=== PATIENT | female | born 1990 | race Caucasian/White ===

== ENCOUNTER → 2017-10-15 | Outpatient (CLI) | payer MEDICAID, BC | END | disposition home or self-care (01) | LOC: MERGE 21:50 → LABMAIN 21:50 | PROVIDERS: ATTEND Family Medicine | DX: Z53.9 Procedure and treatment not carried out, unspecified reason (principal) ==

== ENCOUNTER → 2018-06-23 | Outpatient (CLI) | payer MEDICAID, BC ==
[2018-06-23 21:08] LABS: Urine Alcohol Negative (Negative); Urine Barbiturate Negative (Negative); Urine Cocaine Negative (Negative); Urine Methadone Negative (Negative); Urine Opiates Negative (Negative); Urine Phencyclidine Negative (Negative)
== END ==
LOC: LABWHC1 14:17
PROVIDERS: ATTEND Family Medicine
DX: Z51.81 Encounter for therapeutic drug level monitoring (principal); Z79.899 Other long term (current) drug therapy
CPT/HCPCS: 80306

== ENCOUNTER → 2019-03-26 | Outpatient (CLI) | payer MEDICAID ==
--- NOTE | 2019-03-26 15:23 | US ---
EXAMINATION TYPE: Transabdominal DATE OF EXAM: 03/26/2019 3:07 PM COMPARISON: NONE CLINICAL HISTORY: Z36 Confirm dates. Confirm Dates, Pt has no complaints at this time EXAM PERFORMED: Transabdominal (TA) EXAM MEASUREMENTS: GESTATIONAL AGE / DATING Physician Established: (8 weeks/4 days) EDC: 11/01/2019 Dates by LMP: Unknown Dates by First Scan: No prior Dates by Current Scan for: (8 weeks/5 days) EDC: 10/31/2019 MATERNAL ANATOMY Uterus: 10.4 x 5.7 x 6.9 cm Right Ovary: 2.4 x 1.5 x 2.0 cm Left Ovary: 4.3 x 3.0 x 3.0 cm Post CDS / Adnexa: wnl Presence of free fluid: No Presence of corpus luteal cyst: Left Ovary= 2.7 x 2.2 x 2.4 cm GESTATION / SURVEY CRL: 2.0 cm (8 weeks/5 days) MSD: wnl Yolk Sac (normal less than 6mm): 3mm Heart Rate: 172 bpm Rhythm: Normal IUP: Viable IUP Single, viable IUP, No abnormality visualized at this time Single live intrauterine gestation is present as the gestational sac, yolk sac, and pole are se en. No free fluid in pelvic cul-de-sac. Both ovaries are seen. No suspicious extraovarian adnexal lesion. IMPRESSION: Single live intrauterine gestation, mean crown-rump length is 2.0 cm corresponding to 8 w squaxin 5 day old fetus.
[2019-03-26 15:33] LABS: HCT 34.4 % (34.0-46.0); HGB 11.5 gm/dL (11.4-16.0); MCH 31.7 pg (25.0-35.0); MCHC 33.4 g/dL (31.0-37.0); MCV 94.9 fL (80.0-100.0); Mean Platelet Volume 8.6; Platelet Count 211 k/uL (150-450); RBC 3.62 m/uL (3.80-5.40); RDW 12.1 % (11.5-15.5); WBC 7.3 k/uL (3.8-10.6)
[2019-03-26 15:38] LABS: African American GFR (CKD) >90 (>60 ml/min/1.73 sqM); Glucose 89 mg/dL (74-99); Non-African American GFR(CKD) >90 (>60 ml/min/1.73 sqM)
[2019-03-26 23:51] LABS: Hepatitis B Surface Antigen Non-Reactive (Non-Reactive)
== END | disposition home or self-care (01) ==
LOC: RADUSWWP 14:42
PROVIDERS: ATTEND Obstetrics & Gynecology
DX: Z36.89 Encounter for other specified antenatal screening (principal); Z34.01 Encounter for supervision of normal first pregnancy, first trimester; Z3A.08 8 weeks gestation of pregnancy
CPT/HCPCS: 36415; 76801; 82565; 82947; 85027; 86762; 86780; 86850; 86900; 86901; 87340

== ENCOUNTER 2019-05-13 23:34 | Emergency (ER) | payer MEDICAID ==
[2019-05-14 00:21] VITALS: TEMP 98.6
[2019-05-14 02:28] VITALS: BP 109/55; PULSE 76; RESP 18
--- NOTE | 2019-05-14 03:43 | US ---
EXAMINATION TYPE: US OB >= 14 wk fetus DATE OF EXAM: 05/14/2019 COMPARISON: US CLINICAL HISTORY: Concern for rupture of membranes. Concern for rupture of membranes. . TECHNIQUE: Transabdominal (TA). No TV per ordering PRESIDING STEWARD. GESTATIONAL AGE / DATING Physician Established: (15 weeks/4 days) EDC: 11/01/2019 Dates by LMP: Unknown Dates by First Scan: (15 weeks/5 days) EDC: 10/31/2019 Dates by Current Scan: (16 weeks/0 days) EDC: 10/29/2019 SURVEY IUP: Single PLACENTA: Posterior PREVIA: No Previa ARACELY: 1st measurement: 10.02 cm Normal. (10 cm hospital standards). Second measurement: 11.08 cm. CERVICAL LENGTH (transabdominal: norm > 3.0cm): 3.13 cm BIOMETRY PRESENTATION: Breech BPD: 3.16 cm 15 weeks / 6 days HC: 12.06 cm 16 weeks / 0 days AC: 9.82 cm 15 weeks / 6 days FL: 1.96 cm 15 weeks / 6 days ESTIMATED WEIGHT IN GRAMS: 137.84 grams ESTIMATED WEIGHT IN LBS/OZ: 0 lbs. 5 oz. WEIGHT PERCENTAGE BASED ON ESTABLISHED DATES: 61.6% HC/AC: 1.23 Normal FL/AC: 20.02 HEART RATE: 133 bpm RHYTHM: Normal IMPRESSION: The ultrasound gestational age is 16 weeks. There is no complicating process seen.
--- NOTE | 2019-05-14 03:58 | ED ---
General Adult HPI - General Chief complaint: Urogenital Stated complaint: 15 wks ,leaking fluid Time Seen by Provider: 05/14/19 00:58 Source: patient Mode of arrival: ambulatory - History of Present Illness Initial comments: 28 year-old female patient presents to the emergency department today for evaluation of vaginal discharge and . Patient states she is 15 weeks , . Patient states that she started leaking clear fluid after working out at the gym today. States that she has had several gushes of clear fluid that soaked through her pants. Patient does not believe this is urine because she did just empty her bladder prior to the first episode. States that she did speak to her FILM PROCESSING SUPERVISOR, Dr. Geller who instructed her to be evaluated in the emergency department if her symptoms continued. Patient states she has had one cramp to the suprapubic region which quickly resolved. Denies any back pain. Denies any abnormal bleeding. She denies fever or chills. Denies any hematuria, dysuria, urinary frequency, or urinary urgency. Patient denies any recent rash, fever, chills, cough, shortness of breath, chest pain, nausea, vomiting, diarrhea, constipation, numbness, tingling, dizziness, weakness, headache, visual changes, or any other complaints. - Related Data Allergies Allergy/AdvReac Type Severity Reaction Status Date / Time sulfamethoxazole Allergy Rash/Hives Verified 05/14/19 00:22 [From Bactrim] trimethoprim [From Bactrim] Allergy Rash/Hives Verified 05/14/19 00:22 amoxicillin AdvReac Unknown Verified 05/14/19 00:22 Childhood cefaclor AdvReac Unknown Verified 05/14/19 00:22 Childhood cefprozil [From Cefzil] AdvReac Unknown Verified 05/14/19 00:22 Childhood Penicillins AdvReac Unknown Verified 05/14/19 00:22 Childhood Review of Systems ROS Statement: Those systems with pertinent positive or pertinent negative responses have been documented in the HPI. ROS Other: All systems not noted in ROS Statement are negative. Past Medical History History of Any Multi-Drug Resistant Organisms: None Reported Past Surgical History: Adenoidectomy, Tonsillectomy Past Psychological History: ADD/ADHD Smoking Status: Never smoker Past Alcohol Use History: None Reported Past Drug Use History: None Reported General Exam General appearance: alert, in no apparent distress, other (This is a well- developed, well-nourished adult female patient in no acute distress. Vital signs upon presentation are temperature 98.6F, pulse 81, respirations 19, blood pressure 132/79, pulse ox 99% on room air) Eye exam: Present: normal appearance, PERRL, EOMI. Absent: scleral icterus, conjunctival injection, periorbital swelling ENT exam: Present: normal exam, normal oropharynx, mucous membranes moist Respiratory exam: Present: normal lung sounds bilaterally. Absent: respiratory distress, wheezes, rales, rhonchi, stridor Cardiovascular Exam: Present: regular rate, normal rhythm, normal heart sounds. Absent: systolic murmur, diastolic murmur, rubs, gallop, clicks GI/Abdominal exam: Present: soft, normal bowel sounds. Absent: distended, tenderness, guarding, rebound, rigid Neurological exam: Present: alert, oriented X3, CN II-XII intact Psychiatric exam: Present: normal affect, normal mood Skin exam: Present: warm, dry, intact, normal color. Absent: rash Course Vital Signs 05/14/19 05/14/19 00:12 02:23 Temperature 98.6 F Pulse Rate 81 76 Respiratory 19 18 Rate Blood Pressure 132/79 109/55 O2 Sat by Pulse 99 96 Oximetry Medical Decision Making - Medical Decision Making 28 year-old female patient comes into the emergency department today for evaluation of vaginal discharge in . She states she's had large amount of clear leakage and is concerned that maybe amniotic fluid. Physical examination is unremarkable. Labor and delivery staff came down and evaluated the patient. Fluid tested negative for amniotic contents. Ultrasound was obtained and was unremarkable. Amniotic fluid measured normal. Did discuss findings and results with the patient. Be discharged to follow-up with her FILM PROCESSING SUPERVISOR for recheck tomorrow. She is instructed to call in the morning for further instructions. Return parameters were discussed in detail. She verbalizes understanding and agrees with this plan. - Radiology Data Radiology results: report reviewed Ultrasound was obtained. Report was reviewed in its entirety. Impression by Dr. Bennett shows ultrasound gestational age is 16 weeks. There is no complicating process seen. Disposition Clinical Impression: Vaginal discharge during Disposition: HOME SELF-CARE Condition: Good Instructions (If sedation given, give patient instructions): Vaginal Discharge (ED) Additional Instructions: Follow-up with FILM PROCESSING SUPERVISOR for recheck as soon as possible. Return to the emergency department immediately for any new, worsening, or concerning symptoms. Is patient prescribed a controlled substance at d/c from ED?: No Referrals: Lincoln Vieira DO [Primary Care Provider] - 1-2 days Time of Disposition: 03:58
== END 2019-05-14 04:10 | disposition home or self-care (01) ==
LOC: EC 23:34
DX: O99.89 Other specified diseases and conditions complicating pregnancy, childbirth and the puerperium (principal); N89.8 Other specified noninflammatory disorders of vagina; Z3A.16 16 weeks gestation of pregnancy; Z88.1 Allergy status to other antibiotic agents; Z88.0 Allergy status to penicillin; Z88.2 Allergy status to sulfonamides
CPT/HCPCS: 76805; 99284

== ENCOUNTER → 2019-06-29 | Outpatient (CLI) | payer MEDICAID ==
--- NOTE | 2019-06-29 17:02 | US ---
EXAMINATION TYPE: US OB anatomy transabd DATE OF EXAM: 06/29/2019 COMPARISON: NONE HISTORY: O36.62X0 large for dates Anatomy TECHNIQUE: TA EXAM MEASUREMENTS: GESTATIONAL AGE / DATING Physician Established: (22 weeks/4 days) EDC: 10/29/2019 Dates by LMP: (22 weeks/4 days) EDC: 10/29/2019 Dates by First Scan: (16 weeks/0 days) EDC: 10/29/2019 Dates by Current Scan for: (21 weeks/6 days) EDC: 11/03/2019 SURVEY IUP: Single PLACENTA: Posterior PREVIA: No previa ARACELY: 15.4 cm Normal CERVICAL LENGTH (transabdominal: norm > 3.0cm): 3.7 cm BIOMETRY PRESENTATION: Vertex LIE: Longitudinal BPD: 5.3 cm 22 weeks / 0 days HC: 20.02 cm 22 weeks / 1 days AC: 16.83 cm 21 weeks / 6 days FL: 3.84 cm 22 weeks / 2 days ESTIMATED WEIGHT IN GRAMS: 472.16 grams ESTIMATED WEIGHT IN LBS/OZ: 1 lbs. 1 oz. WEIGHT PERCENTAGE BASED ON ESTABLISHED DATE: 20.4 % HC/AC: 1.19 cm Normal FL/AC: 22.80 cm HEART RATE: 143 bpm RHYTHM: Normal ANATOMY SEEN (within normal limits): * Lateral Vent (< 1 cm) .6 cm * Cisterna Magna (< 1.1 cm) .6 cm * Nuchal Fold (< 0.6 cm) .4cm * Cerebellum (varies with age) 2.1 cm Choroid Plexus (bilateral) Midline Falx Cavus Septi Pellucidi Four Chamber Heart Outflow tracts: LVOT/RVOT Stomach Situs Nose / Lips Diaphragm Kidneys (bilateral) Bladder Cord Insert Three Vessel Cord Longitudinal Spine Transverse Spine Arms (bilateral) Legs (bilateral) ANATOMY NOT SEEN: Outflow tracts: LVOT/RVOT IMPRESSION: Single intrauterine gestation estimated at 20 weeks 6 days gestation based on the current ultrasound measurements. This would have a calculated EDC of 11/03/2019. Correlate this with physician established EDC of 10/29/2019. 2. Cardiac activity measures 143 bpm. 3. Cardiac outflow tracts not identified during this examination. The patient will be recalled for co mpletion of the exam.
== END | disposition home or self-care (01) ==
LOC: RADUSWWP 09:22
PROVIDERS: ATTEND Obstetrics & Gynecology
DX: O36.62X0 Maternal care for excessive fetal growth, second trimester, not applicable or unspecified (principal); Z3A.20 20 weeks gestation of pregnancy
CPT/HCPCS: 76811

== ENCOUNTER → 2019-07-14 | Outpatient (CLI) | payer MEDICAID ==
[2019-07-14 11:59] LABS: HCT 33.7 % (34.0-46.0); HGB 11.2 gm/dL (11.4-16.0); MCH 32.2 pg (25.0-35.0); MCHC 33.1 g/dL (31.0-37.0); MCV 97.3 fL (80.0-100.0); Mean Platelet Volume 8.5; Platelet Count 202 k/uL (150-450); RBC 3.46 m/uL (3.80-5.40); WBC 8.4 k/uL (3.8-10.6)
== END | disposition home or self-care (01) ==
LOC: LABWHC1 10:05
PROVIDERS: ATTEND Obstetrics & Gynecology
DX: Z34.02 Encounter for supervision of normal first pregnancy, second trimester (principal)
CPT/HCPCS: 36415; 82950; 85027

== ENCOUNTER → 2019-07-19 | Outpatient (CLI) | payer MEDICAID | END | disposition home or self-care (01) | LOC: RADUSWWP 07:02 | PROVIDERS: ATTEND Obstetrics & Gynecology | DX: Z53.9 Procedure and treatment not carried out, unspecified reason (principal) ==

== ENCOUNTER → 2019-09-28 | Outpatient (CLI) | payer MEDICAID ==
--- NOTE | 2019-09-28 09:54 | US ---
EXAMINATION TYPE: US OB >= 14 wk fetus DATE OF EXAM: 09/28/2019 COMPARISON: US 06/29/2019 CLINICAL HISTORY: O36.63X0 LARGE FOR DATES TECHNIQUE: Transabdominal (TA) GESTATIONAL AGE / DATING Physician Established: (35 weeks/4 days) EDC: 10/29/2019 Dates by LMP: (35 weeks/4 days) EDC: 10/29/2019 Dates by First Scan: (35 weeks/2 days) EDC: 10/31/2019 Dates by Current Scan: (34 weeks/5 days) EDC: 11/04/2019 SURVEY IUP: Single PLACENTA: Posterior PREVIA: No Previa ARACELY: 13.8 cm Normal CERVICAL LENGTH (transabdominal: norm > 3.0cm): 3.2 cm BIOMETRY PRESENTATION: Vertex LIE: Longitudinal BPD: 8.4 cm 33 weeks / 6 days HC: 30.5 cm 34 weeks / 0 days AC: 31.2 cm 35 weeks / 1 days FL: 6.9 cm 35 weeks / 3 days ESTIMATED WEIGHT IN GRAMS: 2554 grams ESTIMATED WEIGHT IN LBS/OZ: 5 lbs. 10 oz. WEIGHT PERCENTAGE BASED ON ESTABLISHED DATES: 32% HC/AC: 0.98 Normal FL/AC: 22% Normal HEART RATE: 149 bpm RHYTHM: Normal IMPRESSION: Viable IUP, measurements consistent with dates. Visualized anatomy appears wnl
== END | disposition home or self-care (01) ==
LOC: RADUSWWP 08:53
PROVIDERS: ATTEND Obstetrics & Gynecology
DX: O36.63X0 Maternal care for excessive fetal growth, third trimester, not applicable or unspecified (principal)
CPT/HCPCS: 76805

== ENCOUNTER 2019-11-03 16:32 | Inpatient (IN) | payer MEDICAID ==
--- NOTE | 2019-11-03 12:53 | P.HPOB ---
History of Present Illness H&P Date: 11/03/19 Chief Complaint: Postdates induction. This patient is a pleasant 29 yr female estimated date of confinement 11/01/2019 estimated gestational age 40 2/7 weeks who presents to L&D for 2-stage induction of labor secondary to postdates with an unfavorable cervix. has been uncomplicated. Review of Systems Genitourinary: Reports Menstruation: Reports amenorrhea Past Medical History Past Medical History: No Reported History History of Any Multi-Drug Resistant Organisms: None Reported Past Surgical History: Adenoidectomy, Tonsillectomy Past Anesthesia/Blood Transfusion Reactions: No Reported Reaction Past Psychological History: ADD/ADHD Past Alcohol Use History: None Reported Past Drug Use History: None Reported Medications and Allergies Allergies Allergy/AdvReac Type Severity Reaction Status Date / Time sulfamethoxazole Allergy Rash/Hives Verified 05/14/19 00:22 [From Bactrim] trimethoprim [From Bactrim] Allergy Rash/Hives Verified 05/14/19 00:22 amoxicillin AdvReac Unknown Verified 05/14/19 00:22 Childhood cefaclor AdvReac Unknown Verified 05/14/19 00:22 Childhood cefprozil [From Cefzil] AdvReac Unknown Verified 05/14/19 00:22 Childhood Penicillins AdvReac Unknown Verified 05/14/19 00:22 Childhood Exam - OBG Physical Exam Abdomen: bowel sounds normal, no diffuse tenderness, no bruit present, no guarding noted, no hepatomegaly, no splenomegaly, no mass Vulva: both: normal Vagina: normal moisture, no discharge Cervix: no lesion (Cx closed in the office.), no discharge Uterus: enlarged (Fundal height is 39cm.) Results labs: A positive, Rubella Immune, RPR-HepB negative, Glucola 123, GBS negative, Ultrasounds have shown normal growth/anatomy. Assessment and Plan Assessment: This is a pleasant 29 yr female 40 2/7 weeks who presents for 2- stage induction secondary to postdates with unfavorable cervix. Plan is cervidil placement and anticipate . (1) Postmaturity , 40-42 weeks gestation Status: Acute Code(s): O48.0 - POST-TERM SNOMED Code(s): 43971724761663
[2019-11-03] MEDS ORDERED: BUTORPHANOL 1 MG/ML 1 ML VIAL IV PRN (16:45)
[2019-11-03] MEDS ORDERED: DINOPROSTONE 10 MG INSERT.ER VAGINAL ONE (16:45)
[2019-11-03] MEDS ORDERED: CITRIC ACID-SODIUM CITRATE 15 ML CUP PO ONE (17:46)
[2019-11-03] MEDS ORDERED: OXYTOCIN 10 UNIT/ML 1 ML VIAL ONE (17:59)
[2019-11-03] MEDS ORDERED: KETOROLAC 15 MG/ML 1 ML VIAL ONE (17:59)
[2019-11-03] MEDS ORDERED: MORPHINE SULFATE (PF) 0.3 MG/0.3 ML SYR ONE (17:59)
[2019-11-03] MEDS ORDERED: ceFAZolin 1,000 MG VIAL ONE (17:59)
[2019-11-03] MEDS ORDERED: ONDANSETRON 4 MG/2 ML VIAL ONE (17:59)
[2019-11-03] MEDS ORDERED: ONDANSETRON 4 MG/2 ML VIAL IVP PRN (18:20)
[2019-11-03] MEDS ORDERED: MORPHINE SULFATE 2 MG/ML SYRINGE IVP PRN (18:20)
[2019-11-03] MEDS ORDERED: diphenhydrAMINE 50 MG/ML 1 ML VIAL IVP PRN ×2 (18:20→18:56)
[2019-11-03] MEDS ORDERED: NALOXONE 0.4 MG/ML 1 ML VIAL IV PRN (18:20)
[2019-11-03] MEDS ORDERED: LACTATED RINGERS 1,000 ML IV SCH (18:43)
[2019-11-03] MEDS ORDERED: OXYTOCIN 10 UNIT/ML 1 ML VIAL IM PRN (18:43)
[2019-11-03] MEDS ORDERED: LIDOCAINE 0.5% (PF) 5 MG/ML (50 ML SDV) SQ PRN (18:43)
[2019-11-03] MEDS ORDERED: CARBOPROST TROMETHAMINE 250 MCG/ML 1 ML AMP IM PRN (18:43)
[2019-11-03] MEDS ORDERED: OXYTOCIN 30 UNITS/500 ML NS 30 UNIT in SALINE 1 500ML.BAG IV SCH (18:43)
[2019-11-03] MEDS ORDERED: METHYLERGONOVINE 0.2 MG/ML 1 ML AMP IM PRN (18:43)
[2019-11-03] MEDS ORDERED: TERBUTALINE 1 MG/ML VIAL SQ PRN (18:43)
[2019-11-03] MEDS ORDERED: HYDROcodone/APAP 5-325MG 1 EACH TAB PO PRN (18:56)
[2019-11-03] MEDS ORDERED: METOCLOPRAMIDE 5 MG/ML 2 ML VIAL IVP PRN (18:56)
[2019-11-03] MEDS ORDERED: diphenhydrAMINE 25 MG CAP PO PRN (18:56)
[2019-11-03] MEDS ORDERED: ZOLPIDEM 5 MG TAB PO PRN (18:56)
[2019-11-03] MEDS ORDERED: SIMETHICONE 80 MG CHEWABLE PO PRN (18:56)
[2019-11-03] MEDS ORDERED: LANOLIN CREAM 5 GM TUBE TOPICAL PRN (18:56)
[2019-11-03] MEDS ORDERED: ACETAMINOPHEN TAB 325 MG TAB PO PRN (18:56)
[2019-11-03] MEDS ORDERED: OXYTOCIN 20 UNITS/1000 ML NS 1,000 ML IV SCH (19:00)
--- NOTE | 2019-11-03 19:10 | P.OP ---
Date of Procedure: 11/03/19 Preoperative Diagnosis: #1: 40-2/7 week intrauterine . #2: bradycardia remote from delivery Postoperative Diagnosis: #1: Same. #2: Nuchal cord. Procedure(s) Performed: Emergent primary low transverse section Anesthesia: spinal Surgeon: Hu Geller Cook Vegetable #1: Mauri Hinton Estimated Blood Loss (ml): 800 Pathology: other (Placenta) Condition: stable Disposition: floor Indications for Procedure: Please see dictated H&P for intimate details of this patient's admission. Brief summary is a pleasant 29-year-old 1 para 0 female 40-2/7 weeks gestation admitted for postdates induction secondary to unfavorable cervix. On admission patient was not dilated and heart tones are category 1. She has a Cervidil placed and within approximately 15 minutes she has a bradycardic episode. I did immediately go to the room and I felt her abdomen felt like she was having I contraction therefore I removed the Cervidil. IV was placed and patient had usual resuscitative measures and the baby did respond after several minutes. This point I discuss with the patient my concern for intolerance of labor and unfavorable cervix and recommended we proceed with immediate delivery by section. Patient did understand my concerns and indications and wishes to proceed. She does understand the surgery and risks and risks of infection, bleeding, possible injury bowel, bladder, vessels, and/or other organs. Operative Findings: This is a vigorous viable male Apgars 7 and 9 delivery time was 1816 hrs. Nuchal cord 1. Description of Procedure: This patient has a Artis catheter to straight drain. She's immediately taken to the operating room where she sat up and spinal anesthetic is administered without incident. With an adequate level of anesthesia she has abdominal prep and drape. Scalpels and taken and a low transverse uterine incision is then made. A second scalpel is taken down the fascia the fascia scored with a knife. Fascial incision extended bilaterally using the Anaya scissors. Rectus muscles are the peritoneum identified and entered sharply. Peritoneal incision extended superior and inferior without difficulty. Bladder blade is then placed. Bladder peritoneum was taken off the lower segment sharply. Scalpels and taken low transverse uterine incision is then made. Using a hemostat I enter the uterine cavity bluntly. There is loss of clear fluid. This is extended bluntly and the infant's head is guided through this incision with fundal pressure. Mouth and nares are bulb suctioned. There is a tight n uchal cord which is reduced. We then have delivery the rest this 's body. This is a vigorous viable male Apgars are 7 and 9 delivery time is 1816 hrs. After delivery of the infant the cord is doubly clamped and cut appears to be trivascular infant is handed off to the light rail vehicle operator who is in attendance. The placenta is then manually extracted intact. The uterus is then externalized and the uterine incision demarcated with Zambrano clamps. Uterine incision then closed using 0 Vicryl running locked fashion. 2 layers are done. Several [id number] stitches are also done for added hemostasis. Excellent hemostasis is noted. Latter peritoneum was then identified and closed using a 3-0 Vicryl running fashion. Excess fluid is removed from the abdomen and pelvis. Uterus tubes and ovaries appear normal for term gestation. Uterus placed back into the abdomen. The parietal peritoneum was then identified and closed using 0 Vicryl running fashion. Rectus muscles reapproximated in 0 Vicryl interrupted fashion. Fascia is then closed using 0 PDS. Fascial incision is intact and hemostatic. Cutaneous tissues and closed using a 3-0 Vicryl. Skin is and closed using leny. All counts are correct 3. There are no complications. and mother are stable and her birthing suite.
[2019-11-03 19:16] LABS: Basophils % (A) 0 %; Eosinophils # (A) 0.1 k/uL (0-0.7); Eosinophils % (A) 1 %; HCT 38.3 % (34.0-46.0); HGB 12.8 gm/dL (11.4-16.0); Lymphocytes # (A) 1.7 k/uL (1.0-4.8); Lymphocytes % (A) 14 %; MCH 31.4 pg (25.0-35.0); MCHC 33.3 g/dL (31.0-37.0); MCV 94.1 fL (80.0-100.0); Mean Platelet Volume 9.3; Monocytes # (A) 0.5 k/uL (0-1.0); Monocytes % (A) 4 %; Neutrophils # (A) 9.2 k/uL (1.3-7.7); Neutrophils % (A) 79 %; Platelet Count 218 k/uL (150-450); RBC 4.07 m/uL (3.80-5.40); WBC 11.7 k/uL (3.8-10.6)
[2019-11-03] MEDS: LACTATED RINGERS 1,000 ML IV SCH (19:41)
[2019-11-03] MEDS: SENNOSIDES-DOCUSATE SODIUM 1 EACH TAB PO SCH (20:42)
[2019-11-04] MEDS: KETOROLAC 15 MG/ML 1 ML VIAL IVP PRN ×2 (02:23→08:57)
[2019-11-04] MEDS: LACTATED RINGERS 1,000 ML IV SCH (02:40)
--- NOTE | 2019-11-04 05:45 | P.PNOBGPC ---
Subjective - Subjective Patient reports: Reports appetite normal, Reports voiding normally, Reports pain well controlled, Reports ambulating normally : doing well Objective - Vital Signs Latest vital signs: Vital Signs Temp Pulse Resp BP Pulse Ox 11/04/19 04:00 97.5 F L 77 16 113/64 98 11/04/19 02:00 16 11/04/19 00:00 98.1 F 75 16 107/73 11/03/19 23:20 100 11/03/19 23:00 16 11/03/19 21:00 16 11/03/19 20:40 98.7 F 68 16 104/57 11/03/19 20:10 67 16 91/69 11/03/19 19:40 71 16 114/57 11/03/19 19:25 83 16 103/60 99 11/03/19 19:10 83 18 100/50 98 11/03/19 18:55 78 18 97/54 97 11/03/19 18:40 95.7 F L 91 18 96/47 99 11/03/19 16:44 96.5 F L 92 18 111/61 97 Intake and Output 11/03/19 11/03/19 11/04/19 14:59 22:59 06:59 Output Total 1800 400 Balance -1800 -400 Output: Urine 200 400 Estimated Blood Loss 1600 Other: Weight 78.925 kg - Exam Lungs: bilateral: normal Chest: Normal S1, Normal S2 Extremities: Present: normal Abdomen: Present: normal appearance, soft. Absent: distention, tenderness Incision: Present: normal, dry, intact Uterus: Present: normal, firm - Labs Labs: Abnormal Lab Results - Last 24 Hours (Table) 11/03/19 Range/Units 17:45 WBC 11.7 H (3.8-10.6) k/uL Neutrophils # 9.2 H (1.3-7.7) k/uL Assessment and Plan Assessment: Postoperative day #1. Patient is resting without complaints. Vital signs are stable she is afebrile. Uterus is firm nontender she's having normal lochia. Incision is intact and dry. CBC is pending from today. My impression is a normal post operative course. Plan is to check a CBC, encourage ambulation, discontinue her catheter, allow patient to shower, advanced diet as tolerated. (1) Postmaturity , 40-42 weeks gestation Current Visit: No Status: Acute Code(s): O48.0 - POST-TERM SNOMED Code(s): 96180569650584
[2019-11-04 06:43] LABS: Basophils % (A) 0 %; Eosinophils % (A) 0 %; HCT 36.7 % (34.0-46.0); HGB 12.1 gm/dL (11.4-16.0); Lymphocytes % (A) 6 %; MCH 31.1 pg (25.0-35.0); MCV 94.1 fL (80.0-100.0); Mean Platelet Volume 9.1; Monocytes # (A) 0.9 k/uL (0-1.0); Monocytes % (A) 5 %; Neutrophils # (A) 15.9 k/uL (1.3-7.7); Neutrophils % (A) 89 %; Platelet Count 183 k/uL (150-450); RDW 12.9 % (11.5-15.5); WBC 17.9 k/uL (3.8-10.6)
--- NOTE | 2019-11-04 07:18 | P.PN ---
Progress Note - Text Date: 11/04/2019 Time: 700 The patient is status post section Vital signs stable VAS: 0-10 Patient has no complaints of pain. The patient incurred some minimal itching yesterday, this itching is now subsiding. Pain meds to be managed by service.
[2019-11-04] MEDS: SENNOSIDES-DOCUSATE SODIUM 1 EACH TAB PO SCH ×2 (08:56→20:41)
[2019-11-04] MEDS: IBUPROFEN 600 MG TAB PO PRN (20:41)
[2019-11-04 21:37] VITALS: RESP 16
[2019-11-05] MEDS: IBUPROFEN 600 MG TAB PO PRN ×2 (04:25→13:22)
[2019-11-05] MEDS: LACTATED RINGERS 1,000 ML IV SCH (06:02)
--- NOTE | 2019-11-05 06:57 | P.PNOBGPC ---
Subjective - Subjective Patient reports: Reports appetite normal, Reports voiding normally, Reports pain well controlled, Reports ambulating normally : doing well Objective - Vital Signs Latest vital signs: Vital Signs Temp Pulse Resp BP Pulse Ox 11/05/19 00:00 98.0 F 81 16 101/59 97 11/04/19 20:00 16 11/04/19 18:00 18 11/04/19 16:00 98.7 F 74 18 108/71 99 11/04/19 14:00 18 11/04/19 12:00 98.5 F 82 18 97/63 98 11/04/19 08:00 98.8 F 94 18 110/67 98 Intake and Output 11/04/19 11/04/19 11/05/19 14:59 22:59 06:59 Output Total 700 Balance -700 Output: Urine 700 Other: # Voids 0 1 - Exam Lungs: bilateral: normal Chest: Normal S1, Normal S2 Extremities: Present: normal Abdomen: Present: normal appearance, soft. Absent: distention, tenderness Incision: Present: normal, dry, intact Uterus: Present: normal, firm Assessment and Plan Assessment: Postoperative day #2. Patient is resting without complaints and wishes to go home. Vital signs are stable she is afebrile. Uterus is firm nontender and her incision is intact and dry. My impression is normal postoperative course. Plan is to continue routine postoperative care and discharge home later today (1) Postmaturity , 40-42 weeks gestation Current Visit: No Status: Acute Code(s): O48.0 - POST-TERM SNOMED Code(s): 09517758924829
--- NOTE | 2019-11-05 07:07 | P.DS ---
Providers Date of admission: 11/03/19 16:32 Expected date of discharge: 11/05/19 Attending physician: Hu Geller Primary care physician: Stated None - Discharge Diagnosis(es) (1) Postmaturity , 40-42 weeks gestation Current Visit: No Status: Acute Hospital Course: Please see dictated H&P for intimate details of this patient's admission. Brief summary this pleasant 29-year-old 1 para 0 female 40-2/7 weeks gestation admitted to labor and delivery for two-stage induction of labor. After Cervidil placement patient has bradycardic episode subsequent goes on have a primary low transverse section for viable male . The time of delivery is noted have a tight nuchal cord. Likely responsible for the bradycardia. Postoperative patient does well. Postoperative and 2 she is felt stable for discharge home follow up with me in 1 week. Procedures: Primary low transverse section Patient Condition at Discharge: Good Plan - Discharge Summary Discharge Rx Participant: No New Discharge Prescriptions: New Ibuprofen [Motrin] 600 mg PO Q6HR PRN #40 tab PRN Reason: Mild Pain Or Fever >= 100.5 HYDROcodone/APAP 5-325MG [Garvin 5-325] 1 each PO Q4HR PRN #18 tab PRN Reason: Moderate Pain Discharge Medication List HYDROcodone/APAP 5-325MG [Garvin 5-325] 1 each PO Q4HR PRN #18 tab 11/05/19 [Rx] Ibuprofen [Motrin] 600 mg PO Q6HR PRN #40 tab 11/05/19 [Rx] Follow up Appointment(s)/Referral(s): Hu Geller MD [STAFF PHYSICIAN] - 11/16/19 8:45 am (Please see me on December 15 as well as a 30 a.m. for a appointment.) Patient Instructions/Handouts: (DC) Activity/Diet/Wound Care/Special Instructions: No strenuous activity or heavy lifting for 6 weeks. No intercourse or anything per vagina for 6 weeks. Please call if any fever, chills, excessive vaginal bleeding, and/or abdominal pain. Discharge Disposition: HOME SELF-CARE
[2019-11-05] MEDS: SENNOSIDES-DOCUSATE SODIUM 1 EACH TAB PO SCH (08:44)
[2019-11-05 09:26] VITALS: BP 97/65; PULSE 93; TEMP 98.2
== END 2019-11-05 16:20 | disposition home or self-care (01) | DRG 788 ==
LOC: 4FBP 16:32
PROVIDERS: ADMIT Obstetrics & Gynecology; ATTEND Obstetrics & Gynecology
PROC: 10D00Z1 Extraction of Products of Conception, Low, Open Approach (ICD-10-PCS; principal; 2019-11-03 18:00)
DX: O76 Abnormality in fetal heart rate and rhythm complicating labor and delivery (principal); O69.1XX0 Labor and delivery complicated by cord around neck, with compression, not applicable or unspecified; O48.0 Post-term pregnancy; O99.344 Other mental disorders complicating childbirth; F90.9 Attention-deficit hyperactivity disorder, unspecified type; O99.89 Other specified diseases and conditions complicating pregnancy, childbirth and the puerperium; R00.1 Bradycardia, unspecified; Z37.0 Single live birth; Z3A.40 40 weeks gestation of pregnancy; Z88.1 Allergy status to other antibiotic agents; Z88.0 Allergy status to penicillin; Z88.2 Allergy status to sulfonamides
CPT/HCPCS: 85025; 86850; 86900; 86901; 88307

== ENCOUNTER → 2022-02-01 | Outpatient (CLI) | payer MEDICAID ==
[2022-02-01 16:05] LABS: Basophils % (A) 1 %; Eosinophils # (A) 0.1 k/uL (0-0.7); Eosinophils % (A) 1 %; HCT 39.2 % (34.0-46.0); HGB 12.9 gm/dL (11.4-16.0); Lymphocytes # (A) 1.6 k/uL (1.0-4.8); Lymphocytes % (A) 23 %; MCH 31.3 pg (25.0-35.0); MCV 94.8 fL (80.0-100.0); Mean Platelet Volume 9.4; Monocytes # (A) 0.3 k/uL (0-1.0); Monocytes % (A) 5 %; Neutrophils # (A) 4.8 k/uL (1.3-7.7); Neutrophils % (A) 69 %; Platelet Count 221 k/uL (150-450); RBC 4.13 m/uL (3.80-5.40); RDW 11.8 % (11.5-15.5)
== END | disposition home or self-care (01) ==
LOC: LABWHC1 14:03
PROVIDERS: ATTEND Internal Medicine Critical Care Medicine
DX: J02.9 Acute pharyngitis, unspecified (principal); R05.9 Cough, unspecified
CPT/HCPCS: 36415; 85025; 86308; 87070